=== PATIENT | male | born 2000 | race Caucasian/White ===

== ENCOUNTER → 2018-07-10 | Outpatient (CLI) | payer OTHER | LOC: COL.RAD 14:08 | DX: M25.521 Pain in right elbow (principal) | CPT/HCPCS: A9585; Q9967 ==

== ENCOUNTER → 2019-04-04 | Outpatient (CLI) | payer OTHER | LOC: COL.RAD 09:47 | DX: S53.441A Ulnar collateral ligament sprain of right elbow, initial encounter (principal) | CPT/HCPCS: A9585; Q9967 ==